=== PATIENT | female | born 1960 | race Caucasian/White ===

== ENCOUNTER 2019-07-24 01:11 | Emergency (ER) | payer BC, OTHER ==
[~2019-07-24] VITALS: Ht 165.1 cm; Wt 100.0 kg
--- NOTE | 2019-07-24 01:47 | NUR ---
RN to bedside after patient assessed by provider. Patient is alert, oriented, somewhat flat affect. RN declining patient's to stay in the patient's room, due to patient's statement in triage reflecting concern over patient's interactions with significant other. RN to bedside, patient changed into hospital gown. Patient's clothes, purse, shoes, placed into a single belongings bag. Patient labels affixed to bag and placed into locker. Patient declines any suicidal ideation during clinical screen. Doors with access to monitor and cords locked. Girl Friday at bedside. Emergency department medical records field technician now at bedside completing electro cardiogram.
[2019-07-24 02:00] LABS: BASOPHILS # (AUTO) 0.03 x10^3/uL (0-0.1); BASOPHILS % (AUTO) 0 % (0-1); EOSINOPHILS % (AUTO) 2 % (1-7); LYMPHOCYTES # (AUTO) 1.87 x10^3/uL (1-3.4); LYMPHOCYTES % (AUTO) 27 % (22-44); MD NO; MEAN CORPUSCULAR HEMOGLOBIN 31.4 pg (27.0-34.8); MEAN CORPUSCULAR HGB CONC 33.5 g/dL (32.4-35.8); MEAN CORPUSCULAR VOLUME 93.6 fL (80-100); MEAN PLATELET VOLUME 7.4 fL (7.4-10.4); MONOCYTES # (AUTO) 0.42 x10^3/uL (0.2-0.8); MONOCYTES % (AUTO) 6 % (2-9); NEUTROPHILS % (AUTO) 65 % (42-75); PLATELET COUNT 285 x10^3/uL (130-400); RED BLOOD COUNT 4.61 x10^6/uL (3.82-5.3); RED CELL DISTRIBUTION WIDTH 12.7 % (9.6-15.2)
[2019-07-24 02:10] LABS: ALANINE AMINOTRANSFERASE 21 U/L (12-78); ALBUMIN 3.7 g/dL (3.4-5.0); ANION GAP 9 mmol/L (5-15); CALCIUM 9.1 mg/dL (8.5-10.1); CHLORIDE 109 mmol/L (98-107)
[2019-07-24 02:12] LABS: ALKALINE PHOSPHATASE 80 U/L (45-117); BILIRUBIN,TOTAL 0.6 mg/dL (0.2-1.0); TOTAL PROTEIN 7.5 g/dL (6.4-8.2)
[2019-07-24 02:14] LABS: SALICYLATE LEVEL < 1.7 mg/dL (2.8-20.0)
--- NOTE | 2019-07-24 02:52 | NUR ---
PT ASLEEP IN [facility] AT THIS TIME. NADN. EQUAL RISE AND FALL OF CHEST OBSERVED BILATERALLY.
[2019-07-24 03:40] LABS: AMPHETAMINE SCREEN, URINE Negative (Negative); BARBITURATE SCREEN, URINE Negative (Negative); BENZODIAZEPINE SCREEN, URINE Negative (Negative); CANNABINOID SCREEN, URINE Negative (Negative); COCAINE SCREEN, URINE Negative (Negative); METHADONE SCREEN, URINE Negative (Negative); OPIATE SCREEN, URINE Negative (Negative)
--- NOTE | 2019-07-24 04:01 | NUR ---
TASK RN: PATIENT SLEEPING AT THIS TIME, RESPIRATIONS EVEN AND UNLABORED. IN ROOM, DENIES NEEDS.
--- NOTE | 2019-07-24 04:17 | NUR ---
TASK RN: PATIENT SITTING UP IN CHAIR, VSS, STATES "I JUST FEEL A LITTLE NAUSEATED", NO OTHER SYMPTOMS AT THIS TIME.
--- NOTE | 2019-07-24 04:50 | NUR ---
PT IN [facility] AT THIS TIME WITH AT . PT 'S QUESTIONS ANSWERED. PT DENIES ANY NEEDS AT THIS TIME.
--- NOTE | 2019-07-24 05:25 | NUR ---
REPORT FROM ARTURO ALVARENGA. PT SITTING ON [facility], WITH REGISTRATION STAFF AND AT BEDSIDE.
--- NOTE | 2019-07-24 05:41 | NUR ---
SOC EVAL TAKING PLACE, PT SITTING UP ON GURNEY SPEAKING TO PROVIDER ON MONITOR, REMAINS AT BEDSIDE.
--- NOTE | 2019-07-24 05:50 | NUR ---
SPOKE WITH SOC PROVIDER, PROVIDED MEDICAL HX AND CURRENT LEGAL HOLD SITUATION. SOC WILL INITIATE CALL TO PT FOR EVAL.
--- NOTE | 2019-07-24 06:11 | NUR ---
SPOKE WITH SOC, SHE WILL FAX OVER REPORT WITH RECOMMENDATIONS TO LIFT LEGAL HOLD AND TO SUPPLY PT WITH ONE WEEK SUPPLY OF HER [employer]PAR RX IF ERP AGREES TO WRITE RX.
--- NOTE | 2019-07-24 06:55 | NUR ---
REPORT TO JACQUI ALVARENGA.
[2019-07-24 07:09] VITALS: BP 128/88
--- NOTE | 2019-07-24 07:09 | NUR ---
REPORT FROM TOBY P[place]INGTON DRESSED IN ROOM WITH AND AWAITING DISCHARGE. WILL CONTINUE TO LOOK FOR HER DISCHARGE PAPERS. SHE IS AOX4, CALM.
== END 2019-07-24 07:22 | disposition home or self-care (01) ==
LOC: ED 05:27
DX: T43.592A Poisoning by other antipsychotics and neuroleptics, intentional self-harm, initial encounter (principal); F41.9 Anxiety disorder, unspecified; R94.31 Abnormal electrocardiogram [ECG] [EKG]; R11.2 Nausea with vomiting, unspecified; Y92.89 Other specified places as the place of occurrence of the external cause
CPT/HCPCS: 36415; 80053; 80307; 85025; 93005; 99284